=== PATIENT | male | born 1980 | race Caucasian/White ===

== ENCOUNTER 2020-09-18 08:23 | Observation (INO) | payer BC, OTHER ==
[2020-09-18 09:26] LABS: Absolute Lymphocytes (CBC) 1.7 K/uL (0.7-4.9); Basophils % 0.5 % (0-1.3); Hematocrit 45.3 % (39.6-49.0); Lymphocytes % 18.2 % (15.3-44.8); MPV 10.8 fL (7.6-11.3)
[2020-09-18 09:37] LABS: Protime INR 1.21
[2020-09-18 10:02] LABS: ALT/SGPT 96 U/L (12-78); Albumin 3.8 g/dL (3.4-5.0); Alkaline Phosphatase 76 U/L (45-117); BUN Blood Urea Nitrogen 14 mg/dL (7-18); Bicarbonate 23 mmol/L (21-32); Bilirubin Total 4.5 mg/dL (0.2-1.0); Glucose Level 134 mg/dL (74-106); Lipase 116 U/L (73-393); NT PRO-BNP 61 pg/mL (<125); Protein, Total 7.6 g/dL (6.4-8.2); Sodium Level 135 mmol/L (136-145); Troponin (Emerg Dept Use Only) < 0.02 ng/mL (0.0-0.045)
[2020-09-18 10:03] LABS: AST/SGOT 126 U/L (15-37); Magnesium 1.1 mg/dL (1.8-2.4)
[2020-09-18 10:06] LABS: Potassium 2.8 mmol/L (3.5-5.1)
--- NOTE | 2020-09-18 10:11 | RAD REPORT ---
EXAM DESCRIPTION: Torres Single View09/18/2020 10:00 am CLINICAL HISTORY: Cough COMPARISON: none FINDINGS: A few areas of scarring or subsegmental atelectasis are present within the left lung base . The lungs appear clear of acute infiltrate. The heart is normal size
[2020-09-18] MEDS ORDERED: THIAMINE 200 MG/2 ML INJ ONE (10:18)
[2020-09-18] MEDS ORDERED: LORazepam 2 MG/ML VIAL ONE ×2 (10:18→18:05)
[2020-09-18] MEDS ORDERED: NA CHLORIDE 0.9% 1,000 ML ONE (10:19)
[2020-09-18] MEDS ORDERED: MULTIVITAMINS 10 ML VIAL (INJ) IV ONE (10:19)
[2020-09-18] MEDS ORDERED: chlordiazePOXIDE HCl 25 MG CAP ONE (10:19)
--- NOTE | 2020-09-18 10:22 | RAD REPORT ---
EXAM DESCRIPTION: CT - Head Brain Wo Cont - 09/18/2020 9:59 am CLINICAL HISTORY: Dizziness COMPARISON: None TECHNIQUE: Computed axial tomography of the head was obtained. IV contrast was not requested. All CT scans are performed using dose optimization technique as appropriate and may include automated exposure control or mA/KV adjustment according to patient size. FINDINGS: An intracranial bleed is not seen . The ventricles are normal in caliber. No extra-axial fluid collection is noted. Fluid within the sinuses/ mastoids is not seen. Mucus retention cyst right maxillary sinus IMPRESSION: No acute intracranial abnormality is seen. If patient's symptoms persist MRI of the bra in would be recommended.
[2020-09-18] MEDS ORDERED: KCL 20 MEQ/100 mL IVPB 20 MEQ/100 ML BAG IV ONE (10:53)
[2020-09-18] MEDS ORDERED: Magnesium Sulfate 2gm IVPB 2 G/50 ML BAG IV ONE (10:53)
[2020-09-18] MEDS ORDERED: POTASSIUM CL SA 10 MEQ TAB PO ONE (10:53)
[2020-09-18 10:57] LABS: Blood Morphology Comment NOTED (NOT SEEN); Macrocytosis 2+; Platelet Estimate DECR; Stomatocytes 1+; White Blood Cell Scan OK (OK)
--- NOTE | 2020-09-18 11:07 | EDPHYS ---
Physician Documentation [facility] Name: Dami Spring Age: 39 yrs Sex: Male : 1980 Arrival Date: 09/18/2020 Time: 08:27 Bed 17 Private MD: ED Physician Jamin Ga HPI: 09/18 09:36 This 39 yrs old Male presents to ER via EMS with complaints of Probable phan Seizure. 09:36 The patient presents after having a single isolated seizure, that lasted 2 minute(s). phan Character of seizure(s): Loss of consciousness: the patient experienced loss of consciousness, Motor activity: generalized, Incontinence: none, Apnea: the patient did not experience apnea, Circulation: the patient did not experience evidence of pulse disturbance. Seizure onset: just prior to arrival. Context: the seizure(s) was witnessed, by family, father, mother, occurred at home. Seizure Hx: the patient has no previous seizure history. Associated injury: The patient did not suffer any apparent associated injury. EMS care: none. Current symptoms: confusion. The patient has not experienced similar symptoms in the past. Historical: - Allergies: 08:31 No Known Allergies; ph - Home Meds: 08:31 Unable to obtain [Active]; ph - Immunization history:: Adult Immunizations unknown. - Social history:: Smoking status: Patient reports the use of cigarette tobacco products, smokes one-half pack cigarettes per day, Patient/guardian denies using street drugs. - Family history:: not pertinent. ROS: 09:36 Constitutional: Negative for fever, chills, and weight loss, Eyes: Negative for injury, phan pain, redness, and discharge, ENT: Negative for injury, pain, and discharge, Neck: Negative for injury, pain, and swelling, Cardiovascular: Negative for chest pain, palpitations, and edema, Respiratory: Negative for shortness of breath, cough, wheezing, and pleuritic chest pain, Abdomen/GI: Negative for abdominal pain, nausea, vomiting, diarrhea, and constipation, Back: Negative for injury and pain, : Negative for injury, bleeding, discharge, and swelling, MS/Extremity: Negative for injury and deformity, Skin: Negative for injury, rash, and discoloration, Psych: Negative for depression, anxiety, suicide ideation, homicidal ideation, and hallucinations, Allergy/Immunology: Negative for hives, rash, and allergies, Endocrine: Negative for neck swelling, polydipsia, polyuria, polyphagia, and marked weight changes, Hematologic/Lymphatic: Negative for swollen nodes, abnormal bleeding, and unusual bruising. 09:36 Neuro: Positive for seizure activity. Exam: 09:36 Constitutional: This is a well developed, well nourished patient who is awake, alert, phan and in no acute distress. Head/Face: Normocephalic, atraumatic. ENT: Nares patent. No nasal discharge, no septal abnormalities noted. Tympanic membranes are normal and external auditory canals are clear. Oropharynx with no redness, swelling, or masses, exudates, or evidence of obstruction, uvula midline. Mucous membranes moist. Neck: Trachea midline, no thyromegaly or masses palpated, and no cervical lymphadenopathy. Supple, full range of motion without nuchal rigidity, or vertebral point tenderness. No Meningismus. Chest/axilla: Normal chest wall appearance and motion. Nontender with no deformity. No lesions are appreciated. Respiratory: Lungs have equal breath sounds bilaterally, clear to auscultation and percussion. No rales, rhonchi or wheezes noted. No increased work of breathing, no retractions or nasal flaring. Abdomen/GI: Soft, non-tender, with normal bowel sounds. No distension or tympany. No guarding or rebound. No evidence of tenderness throughout. Back: No spinal tenderness. No costovertebral tenderness. Full range of motion. Male : Normal genitalia with no discharge or lesions. Skin: Warm, dry with normal turgor. Normal color with no rashes, no lesions, and no evidence of cellulitis. MS/ Extremity: Pulses equal, no cyanosis. Neurovascular intact. Full, normal range of motion. Psych: Awake, alert, with orientation to person, place and time. Behavior, mood, and affect are within normal limits. 09:36 Eyes: Sclera: icterus, is present. 09:36 Neuro: Orientation: to person, place, time, situation, Mentation: is normal, Memory: appropriate for stated age, no acute changes, Cerebellar function: is grossly normal based on the patient's age, no acute changes, Motor: is normal, is grossly normal based on the patient's age, no acute changes, moves all fours, Sensation: is normal, no obvious gross deficits, no acute changes, Gait: not tested. Deep tendon reflexes are 2+ (normal) in the bilateral brachioradialis, bicep, tricep and patellar and Achilles tendons, seizure activity, is not displayed by the patient. Vital Signs: 08:28 BP 123 / 100; Pulse 119; Resp 18; Temp 98.7(O); Pulse Ox 100% on R/A; Weight 79.38 kg; ph Height 4 ft. 9 in. (144.78 cm); 09:30 BP 127 / 98; Pulse 101; Resp 18; Pulse Ox 98% on R/A; ph 10:55 BP 122 / 89; Pulse 89; Resp 18; Pulse Ox 100% on R/A; ph 12:03 BP 128 / 89; Pulse 88; Resp 18; Pulse Ox 99% on R/A; ph 13:30 BP 136 / 89; Pulse 87; Resp 18; Pulse Ox 99% on R/A; ph 08:28 Body Mass Index 37.87 (79.38 kg, 144.78 cm) ph Vin Coma Score: 08:34 Eye Response: spontaneous(4). Verbal Response: confused(4). Motor Response: obeys ph commands(6). Total: 14. MDM: 08:31 Patient medically screened. phan 09:39 Differential diagnosis: drug overdose, seizure. Data reviewed: vital signs, nurses [facility] notes, lab test result(s), EKG, radiologic studies, CT scan, plain films. Data interpreted: telemetry monitor: rate is 119 beats/min, rhythm is regular. Test interpretation: by ED physician or midlevel provider: ECG, plain radiologic studies. Counseling: I had a detailed discussion with the patient and/or guardian regarding: the historical points, exam findings, and any diagnostic results supporting the discharge/admit diagnosis, the presence of at least one elevated blood pressure reading (>120/80) during this emergency department visit, lab results, radiology results, the need for further work-up and treatment in the hospital. Medical screen evaluation completed. EMTALA emergency medical condition absent. Medical screen evaluation completed. [facility]. 09/18 08:36 Order name: Basic Metabolic Panel; Complete Time: 11:02 phan 09/18 08:36 Order name: CBC with Diff; Complete Time: 11:02 [facility] 09/18 08:36 Order name: LFT's; Complete Time: 11:02 [facility] 09/18 08:36 Order name: Magnesium; Complete Time: 11:02 [facility] 09/18 08:36 Order name: NT PRO-BNP; Complete Time: 11:02 [facility] 09/18 08:36 Order name: PT-INR; Complete Time: 09:40 [facility] 09/18 08:36 Order name: Troponin (emerg Dept Use Only); Complete Time: 11:02 [facility] 09/18 08:36 Order name: Lipase; Complete Time: 11:02 [facility] 09/18 08:36 Order name: Acetaminophen; Complete Time: 11:02 [facility] 09/18 08:36 Order name: ETOH Level; Complete Time: 11:02 [facility] 09/18 08:36 Order name: Ptt, Activated; Complete Time: 09:40 [facility] 09/18 08:36 Order name: Salicylate; Complete Time: 11:02 [facility] 09/18 08:36 Order name: Urine Drug Screen [facility] 09/18 08:36 Order name: AMMONIA; Complete Time: 09:40 [facility] 09/18 08:36 Order name: XRAY Chest (1 view); Complete Time: 11:02 [facility] 09/18 08:36 Order name: CT Head Brain wo Cont; Complete Time: 11:02 [facility] 09/18 09:32 Order name: CBC Smear Scan; Complete Time: 11:02 [facility] 09/18 10:17 Order name: Phosphorus; Complete Time: 11:02 [facility] 09/18 12:13 Order name: SARS-COV-2 RT PCR [facility] 09/18 13:17 Order name: Urine Dipstick-Ancillary [facility] 09/18 17:27 Order name: Hemoglobin A1c [facility] 09/18 08:36 Order name: EKG; Complete Time: 09:17 [facility] 09/18 08:36 Order name: Cardiac monitoring; Complete Time: 09:38 [facility] 09/18 08:36 Order name: EKG - Nurse/Tech; Complete Time: 09:37 [facility] 09/18 08:36 Order name: IV Saline Lock; Complete Time: 09:38 [facility] 09/18 08:36 Order name: Labs collected and sent; Complete Time: 10:53 [facility] 09/18 08:36 Order name: O2 Per Protocol; Complete Time: 10:53 [facility] 09/18 08:36 Order name: O2 Sat Monitoring; Complete Time: 10:53 [facility] 09/18 08:36 Order name: Suicide Screening ([place]); Complete Time: 09:37 [facility] 09/18 08:36 Order name: Seizure Precautions; Complete Time: 08:45 [facility] Administered Medications: 10:50 Drug: Thiamine 100 mg Route: IV; Rate: bolus; Site: right antecubital; ph 12:04 Follow up: Response: No adverse reaction; IV Status: Completed infusion ph 10:50 Drug: NS 0.9% 1000 ml Route: IV; Rate: 125 ml/hr; Site: right antecubital; ph 12:04 Follow up: IV Status: Infusion continued upon admission ph 10:50 Drug: Banana Bag - (NS 0.9% 1000 ml, foLIC Acid 1 mg, Thiamine 100 mg, Multivitamin 1 ph amp) Route: IV; Rate: 150 ml/hr; Site: right antecubital; 12:04 Follow up: Response: No adverse reaction; IV Status: Infusion continued upon admission ph 10:51 Drug: Potassium Effervescent Tablet 50 mEq Route: PO; ph 12:05 Follow up: Response: No adverse reaction ph 10:51 Drug: Potassium Chloride 20 mEq Route: IV; Rate: per protocol; Site: right antecubital; ph 13:00 Follow up: IV Status: Completed infusion ph 10:51 Drug: Magnesium Sulfate 2 grams Route: IVPB; Infused Over: 2 hrs; Site: right ph antecubital; 13:00 Follow up: Response: No adverse reaction; IV Status: Completed infusion ph 10:52 Drug: Ativan (LORazepam) 1 mg Route: IVP; Site: right antecubital; ph 12:05 Follow up: Response: No adverse reaction ph 10:52 Drug: chlordiazePOXIDE 50 mg Route: PO; ph 12:05 Follow up: Response: No adverse reaction ph Disposition: 09/18/20 11:07 Hospitalization ordered by Kody Flores for Inpatient Admission. Preliminary diagnosis are Epileptic seizures related to external causes, Alcohol abuse, Alcoholic liver disease, Hypomagnesemia, Hypokalemia. - Bed requested for Telemetry/MedSurg (Inpatient). - Status is Inpatient Admission. ph - Condition is Fair. - Problem is new. - Symptoms have improved. Signatures: Dispatcher [employer] EDJamin Pham MD MD cha Martinez, Eric em1 Rae Powell RN RN ph Corrections: (The following items were deleted from the chart) 11:21 09:17 CORONAVIRUS+MR.LAB.BRZ ordered. EDMS EDMS 14:40 11:07 Hospitalization Ordered by Kody Flores MD for Inpatient Admission. Preliminary em1 diagnosis is Epileptic seizures related to external causes; Alcohol abuse; Alcoholic liver disease; Hypomagnesemia; Hypokalemia. Bed requested for Telemetry/MedSurg (Inpatient). Status is Inpatient Admission. Condition is Fair. Problem is new. Symptoms have improved. phan 16:57 14:40 09/18/2020 11:07 Hospitalization Ordered by Kody Flores MD for Inpatient em1 Admission. Preliminary diagnosis is Epileptic seizures related to external causes; Alcohol abuse; Alcoholic liver disease; Hypomagnesemia; Hypokalemia. Bed requested for [facility] ER HOLD. Status is Inpatient Admission. Condition is Fair. Problem is new. Symptoms have improved. em1 18:54 16:57 09/18/2020 11:07 Hospitalization Ordered by Kody Flores MD for Inpatient ph Admission. Preliminary diagnosis is Epileptic seizures related to external causes; Alcohol abuse; Alcoholic liver disease; Hypomagnesemia; Hypokalemia. Bed requested for Telemetry/MedSurg (Inpatient). Status is Inpatient Admission. Condition is Fair. Problem is new. Symptoms have improved. em1
--- NOTE | 2020-09-18 11:07 | ER ---
Nurse's Notes [facility] Name: Dami Spring Age: 39 yrs Sex: Male : 1980 Arrival Date: 09/18/2020 Time: 08:27 Bed 17 Private MD: Diagnosis: Epileptic seizures related to external causes;Alcohol abuse;Alcoholic liver disease;Hypomagnesemia;Hypokalemia Presentation: 09/18 08:28 Chief complaint: EMS states: New onset seizure witnessed by family who stated it lasted ph approx 15 min, family states that pt has hx of ETOH use and possible "liver problems", pt denies recent ETOH or drug use, alert upon arrival, oriented to person only. Coronavirus screen: Client denies travel out of the [place] in the last 14 days. Ebola Screen: No symptoms or risks identified at this time. Initial Sepsis Screen: Does the patient meet any 2 criteria? No. Patient's initial sepsis screen is negative. Does the patient have a suspected source of infection? No. Patient's initial sepsis screen is negative. Risk Assessment: Do you want to hurt yourself or someone else? Patient reports no desire to harm self or others. Onset of symptoms was September 18, 2020. 08:28 Method Of Arrival: EMS: [facility] ph 08:28 Acuity: CANDICE 2 ph 08:31 Care prior to arrival: IV initiated. 20 GA, in the right antecubital area, Glucose ph check: 128. Historical: - Allergies: 08:31 No Known Allergies; ph - Home Meds: 08:31 Unable to obtain [Active]; ph - Immunization history:: Adult Immunizations unknown. - Social history:: Smoking status: Patient reports the use of cigarette tobacco products, smokes one-half pack cigarettes per day, Patient/guardian denies using street drugs. - Family history:: not pertinent. Screenin:32 Abuse screen: Denies threats or abuse. Denies injuries from another. Nutritional ph screening: No deficits noted. Tuberculosis screening: No symptoms or risk factors identified. Fall Risk Fall in past 12 months (25 points). No secondary diagnosis (0 pts). IV access (20 points). Ambulatory Aid- None/Bed Rest/Nurse Assist (0 pts). Gait- Normal/Bed Rest/Wheelchair (0 pts) Mental Status- Oriented to own ability (0 pts). Total Staples Fall Scale indicates Low Risk Score (25-44 pts). Fall prevention measures have been instituted. Side Rails Up X 2 Placed close to Nursing Station Frequent Obs/Assesments occuring Family Present and informed to notify staff if they need to leave bedside As available Patient and Family Educated on Fall Prevention Program and strategies. Assessment: 08:33 General: Appears in no apparent distress. comfortable, well groomed, Behavior is calm, ph cooperative, appropriate for age, Denies fever, feeling ill. Pain: Denies pain. Neuro: Level of Consciousness is awake, alert, obeys commands, Oriented to person, Speech is normal, Facial symmetry appears normal, Seizure activity reported prior to arrival. Cardiovascular: Capillary refill < 3 seconds in bilateral fingers Patient's skin is warm and dry. Rhythm is sinus tachycardia. Respiratory: Airway is patent Respiratory effort is even, unlabored, Respiratory pattern is regular, symmetrical. Derm: Skin is intact, Skin is pink, warm \\T\\ dry. Musculoskeletal: Circulation, motion, and sensation intact. Range of motion: intact in all extremities. 09:30 Reassessment: Patient appears in no apparent distress at this time. Patient and/or ph family updated on plan of care and expected duration. Pain level reassessed. Patient is alert, oriented x 3, equal unlabored respirations, skin warm/dry/pink. Pt now A\\T\\O x 4, does not recall having seizure, pt admits to being a daily drinker, 1 pint of liquor per day. 10:54 Reassessment: Patient appears in no apparent distress at this time. Patient and/or ph family updated on plan of care and expected duration. Pain level reassessed. Patient is alert, oriented x 3, equal unlabored respirations, skin warm/dry/pink. Family at bedside. 12:03 Reassessment: Patient appears in no apparent distress at this time. Patient and/or ph family updated on plan of care and expected duration. Pain level reassessed. Patient is alert, oriented x 3, equal unlabored respirations, skin warm/dry/pink. 13:00 Reassessment: Patient appears in no apparent distress at this time. Patient and/or ph family updated on plan of care and expected duration. Pain level reassessed. Patient is alert, oriented x 3, equal unlabored respirations, skin warm/dry/pink. Vital Signs: 08:28 BP 123 / 100; Pulse 119; Resp 18; Temp 98.7(O); Pulse Ox 100% on R/A; Weight 79.38 kg; ph Height 4 ft. 9 in. (144.78 cm); 09:30 BP 127 / 98; Pulse 101; Resp 18; Pulse Ox 98% on R/A; ph 10:55 BP 122 / 89; Pulse 89; Resp 18; Pulse Ox 100% on R/A; ph 12:03 BP 128 / 89; Pulse 88; Resp 18; Pulse Ox 99% on R/A; ph 13:30 BP 136 / 89; Pulse 87; Resp 18; Pulse Ox 99% on R/A; ph 08:28 Body Mass Index 37.87 (79.38 kg, 144.78 cm) ph Vin Coma Score: 08:34 Eye Response: spontaneous(4). Verbal Response: confused(4). Motor Response: obeys ph commands(6). Total: 14. ED Course: 08:27 Patient arrived in ED. ph 08:30 Triage completed. ph 08:31 Jamin Ga MD is Attending Physician. phan 08:31 Arm band placed on right wrist. ph 08:32 Placed in gown. Bed in low position. Call light in reach. Side rails up X2. Seizure ph precautions initiated. nuclear monitoring technician on. Pulse ox on. NIBP on. Door closed. Noise minimized. 08:33 Rae Powell, RN is Primary Nurse. ph 09:00 No provider procedures requiring assistance completed. Maintain EMS IV. Dressing ph intact. Good blood return noted. Site clean \\T\\ dry. Gauge \\T\\ site: 18 RAC. IV is intact, with fluids infusing freely, with good blood return. 09:59 CT Head Brain wo Cont In Process Unspecified. EDMS 10:00 XRAY Chest (1 view) In Process Unspecified. EDMS 11:04 Kody Flores MD is Hospitalizing Provider. phan 18:05 Patient admitted, IV remains in place. ph Administered Medications: 10:50 Drug: Thiamine 100 mg Route: IV; Rate: bolus; Site: right antecubital; ph 12:04 Follow up: Response: No adverse reaction; IV Status: Completed infusion ph 10:50 Drug: NS 0.9% 1000 ml Route: IV; Rate: 125 ml/hr; Site: right antecubital; ph 12:04 Follow up: IV Status: Infusion continued upon admission ph 10:50 Drug: Banana Bag - (NS 0.9% 1000 ml, foLIC Acid 1 mg, Thiamine 100 mg, Multivitamin 1 ph amp) Route: IV; Rate: 150 ml/hr; Site: right antecubital; 12:04 Follow up: Response: No adverse reaction; IV Status: Infusion continued upon admission ph 10:51 Drug: Potassium Effervescent Tablet 50 mEq Route: PO; ph 12:05 Follow up: Response: No adverse reaction ph 10:51 Drug: Potassium Chloride 20 mEq Route: IV; Rate: per protocol; Site: right antecubital; ph 13:00 Follow up: IV Status: Completed infusion ph 10:51 Drug: Magnesium Sulfate 2 grams Route: IVPB; Infused Over: 2 hrs; Site: right ph antecubital; 13:00 Follow up: Response: No adverse reaction; IV Status: Completed infusion ph 10:52 Drug: Ativan (LORazepam) 1 mg Route: IVP; Site: right antecubital; ph 12:05 Follow up: Response: No adverse reaction ph 10:52 Drug: chlordiazePOXIDE 50 mg Route: PO; ph 12:05 Follow up: Response: No adverse reaction ph Outcome: 11:07 Decision to Hospitalize by Provider. phan 14:45 Admitted to ER Hold. Please see [facility] for further documentation. ph 14:45 Condition: good 14:45 Instructed on the need for admit. 18:54 Patient left the ED. ph Signatures: Dispatcher [employer] Jamin Saab MD MD cha Hall, Patricia, RN RN ph
[2020-09-18 13:17] LABS: Urine Blood Negative (Negative); Urine Glucose Negative (Negative); Urine Protein 2+ (Negative); Urine pH 6.5 (5.0-7.0)
[2020-09-18 13:37] LABS: Barbiturates NEGATIVE (NEGATIVE); Benzodiazepines NEGATIVE (NEGATIVE); Cocaine NEGATIVE (NEGATIVE); METHAMPHETAM NEGATIVE (NEGATIVE); Methadone NEGATIVE (NEGATIVE); Opiates NEGATIVE (NEGATIVE); Phencyclidine NEGATIVE (NEGATIVE); THC Cannibis POSITIVE (NEGATIVE)
[2020-09-18] MEDS ORDERED: LABETALOL 20 MG/4ML SYRINGE IV PRN (13:56)
[2020-09-18] MEDS ORDERED: ACETAMINOPHEN 500 MG TAB PO PRN (13:57)
[2020-09-18] MEDS ORDERED: ONDANSETRON 4 MG/2 ML VIAL IV PRN (13:57)
[2020-09-18] MEDS ORDERED: TRAMADOL HCL 50 MG TAB PO PRN (13:59)
[2020-09-18] MEDS: CEFTRIAXONE/SWI 1gm 1 GM/10 ML SYR IV SCH (14:00)
--- NOTE | 2020-09-18 14:06 | P.HP ---
Certification for Inpatient Patient admitted to: Observation With expected LOS: <2 Midnights Patient will require the following post-hospital care: None Practitioner: I am a practitioner with admitting privileges, knowledge of patient current condition, hospital course, and medical plan of care. Services: Services provided to patient in accordance with Admission requirements found in Title 42 Section 412.3 of the Code of Federal Regulations <Rosario Whipple - Last Filed: 09/18/20 18:18> Patient History Date of Service: 09/18/20 Reason for admission: Alcohol withdrawal, seizures History of Present Illness: Patient is a 39-year-old male with a past medical history significant for alcohol abuse and nicotine dependence who presents with complaint of seizures onset today. Family reported that patient was in the living room when he started having generalized stiffness and patient eventually had a tonic-clonic seizure that lasted for about 1 min . Prior to having seizure , patient developed nausea and vomiting 4 days ago. Patient resides in [place] and visiting his father 4 days ago. Patient also reports associated signs and symptoms of diaphoresis, dizziness, tremors and hallucinations--auditory and visual. Patient had postictal symptom of confusion which resolved by the time patient came to the hospital. Patient currently denies any other signs and symptoms. Symptoms are aggravated or relieved by nothing. Patient was brought to the hospital for medical evaluation. Home medications list reviewed: No - Past Medical/Surgical History Has patient received pneumonia vaccine in the past: No Diabetic: No -: Alcohol abuse. -: Nicotine dependence. - Social History Smoking Status: Current every day smoker Smoking therapy provided: Yes Patient receptive to therapy: Yes Alcohol use: Yes CD- Drugs: Yes Caffeine use: No Place of Residence: Home <CristallenkaRosario edward Wagner - Last Filed: 09/18/20 18:18> Date of Service: 09/18/20 <Kody Flores - Last Filed: 09/19/20 13:48> Allergies No Known Allergies Allergy (Verified 09/18/20 22:12) Review of Systems General: Sweats, Other (Tremros, hallucination.) Eyes: Unremarkable ENT: Unremarkable Respiratory: Unremarkable Cardiovascular: Unremarkable Gastrointestinal: Nausea, Vomiting Genitourinary: Unremarkable Musculoskeletal: Unremarkable Integumentary: Unremarkable Neurological: Other (Dizziness) <SoleBrandoncan Edward - Last Filed: 09/18/20 18:18> Physical Examination - Physical Exam General: Alert, In no apparent distress, Oriented x3 HEENT: Atraumatic, PERRLA, Mucous membr. moist/pink, EOMI, Sclerae nonicteric Neck: Supple, 2+ carotid pulse no bruit, No LAD, Without JVD or thyroid abnormality Respiratory: Clear to auscultation bilaterally, Normal air movement Cardiovascular: No edema, Regular rate/rhythm, Normal S1 S2 Capillary refill: <2 Seconds Gastrointestinal: Normal bowel sounds, No tenderness Musculoskeletal: No clubbing, No tenderness Integumentary: No rashes Neurological: Normal gait, Normal speech, Normal strength at 5/5 x4 extr, Normal tone, Normal affect Lymphatics: No axilla or inguinal lymphadenopathy External genitalia: Deferred Rectal: Deferred - Studies Laboratory Data (last 24 hrs) 09/18/20 08:45: PT 14.0 H, INR 1.21, APTT 24.8 09/18/20 08:45: WBC 9.30, Hgb 15.8, Hct 45.3, Plt Count 98 L 09/18/20 08:45: Sodium 135 L, Potassium 2.8 L*, BUN 14, Creatinine 1.15, Glucose 134 H, Magnesium 1.1 L*, Total Bilirubin 4.5 H, AST 126 H, ALT 96 H, Alkaline Phosphatase 76, Lipase 116 <Rosario Whipple - Last Filed: 09/18/20 18:18> Assessment and Plan - Plan --Seizures. Likely alcohol induced. CT head unremarkable for any acute intracranial abnormality. Neurology consulted. Recommends an EEG. Will await further recommendations from neurology. --Alcohol abuse. Patient currently having withdrawal symptoms. Patient placed on banana bag, Librium and Ativan p.r.n.. CIWA protocol. Social work consulted to help with resources for alcohol withdrawal. --Acute encephalopathy. Resolved. Continue supportive care. --Hypokalemia. Replete p.r.n.. -UTI POA. Patient placed on antibiotics. --Hypomagnesaemia. Replete p.r.n.. --Nicotine dependence. Patient placed on nicotine patch and counseled on tobacco cessation. --Cannabis use disorder. Patient counseled on cessation. --DVT prophylaxis with Lovenox subQ Plan to discharge in: 48 Hours - Advance Directives Does patient have a Living Will: No Does patient have a Durable POA for Healthcare: No - Code Status/Comfort Care Code Status Assessed: Yes Code Status: Full Code Critical Care: No <Rosario Whipple - Last Filed: 09/18/20 18:18> Date of Service: 09/18/20 Patient is doing well. No new compliants. Anticipate DC in the AM <Kody Flores - Last Filed: 09/19/20 13:48>
[2020-09-18 15:29] VITALS: BMI 24.4
[2020-09-18] MEDS ORDERED: CEFTRIAXONE/SWI 1gm 1 GM/10 ML SYR ONE (16:12)
[2020-09-18] MEDS: LORazepam 2 MG/ML VIAL IV PRN (17:45)
[2020-09-18] MEDS: NICOTINE 21 MG/PAT TD SCH (22:08)
[2020-09-19] MEDS: chlordiazePOXIDE HCl 25 MG CAP PO SCH ×2 (00:41→06:09)
[2020-09-19] MEDS: LORazepam 2 MG/ML VIAL IV PRN ×2 (02:44→08:20)
[2020-09-19 04:42] LABS: Basophils % 0.9 % (0-1.3); Hematocrit 41.4 % (39.6-49.0); Lymphocytes % 23.8 % (15.3-44.8); MPV 10.7 fL (7.6-11.3); RBC Red Blood Cell Count 3.63 M/uL (4.33-5.43)
[2020-09-19 04:59] LABS: BUN Blood Urea Nitrogen 11 mg/dL (7-18); Bicarbonate 30 mmol/L (21-32); Glucose Level 86 mg/dL (74-106); HDL Cholesterol 61 mg/dL (40-60); LDL Cholesterol, Calculated 98 (<130); Potassium 3.6 mmol/L (3.5-5.1); Sodium Level 140 mmol/L (136-145)
[2020-09-19 05:42] LABS: Magnesium 1.5 mg/dL (1.8-2.4)
[2020-09-19] MEDS ORDERED: POTASSIUM 25 MEQ EFFERV TAB PO ONE (05:46)
[2020-09-19] MEDS ORDERED: Magnesium Sulfate 2gm IVPB 2 G/50 ML BAG IV ONE ×2 (05:47→14:16)
[2020-09-19] MEDS: NICOTINE 21 MG/PAT TD SCH (08:20)
[2020-09-19] MEDS: CEFTRIAXONE/SWI 1gm 1 GM/10 ML SYR IV SCH (08:20)
[2020-09-19] MEDS ORDERED: FOLIC ACID 1 MG, MULTIVITAMINS INJ 10 ML, THIAMINE HCL 100 MG in NA CHLORIDE 0.9% 1,000 ML IV SCH (09:00)
[2020-09-19] MEDS ORDERED: ENOXAPARIN 40 MG/0.4 ML SQ SCH (09:00)
[2020-09-19 10:08] VITALS: O2SAT 98
--- NOTE | 2020-09-19 12:00 | EKG ---
Test Date: 2020-09-18 Test Time: 09:27:37 Scrubber Operator: DERICK MEASUREMENT RESULTS: Intervals: Rate: 92 GA: 124 QRSD: 74 QT: 376 QTc: 464 [place]: P: 64 GA: 124 QRS: 5 T: 58 INTERPRETIVE STATEMENTS: Normal sinus rhythm Septal infarct, age undetermined Abnormal ECG No previous ECG available for comparison Electronically Signed On 09-19-20 11:54:14 CDT by Govind Michelle
[2020-09-19 13:25] VITALS: BP 166/104; TEMP 97.1
--- NOTE | 2020-09-20 09:00 | EEG ---
CHART: [id number] TEST ID#: [id number] DATE OF STUDY: 09/19/2020 THE EEG WAS RECORDED PORTABLE IN THE PATIENT'S ROOM ON A 17 CHANNEL MACHINE. ELECTRODES WERE APPLIED IN THE USUAL MANNER USING THE INTERNATIONAL 10-20 SYSTEM. THE WAKING BACKGROUND RHYTHM IN THIS RECORD CONSISTS OF VERY WELL DEVELOPED AND WELL ORGANIZED WAVES OF 10 HZ., MAXIMAL IN THE POSTERIOR HEAD REGIONS WHICH ATTENUATE NORMALLY WITH EYE OPENING. EXCESS LOW-VOLTAGE 18-22 HZ ACTIVITY IS EXPRESSED IN ALL REGIONS. THERE ARE NO FOCAL OR LATERALIZING FEATURES. NO EPILEPTIFORM ACTIVITY APPEARS. SLEEP OCCURRED NATURALLY. HYPERVENTILATION WAS NOT PERFORMED. PHOTIC STIMULATION PRODUCED GOOD DRIVING BILATERALLY. IMPRESSION: NORMAL EEG FOR THE AGE OF THE PATIENT IN [place]. THE PRESENCE IF EXCESS FAST (BETA) ACTIVITY IS CONSISTENT WITH A MEDICATION EFFECT IN THIS NORMAL AWAKE EEG.
--- NOTE | 2020-09-24 04:38 | P.DS ---
Discharge Date: 09/19/20 Disposition: ROUTINE DISCHARGE Discharge Condition: GOOD Reason for Admission: Alcohol withdrawal, seizures Brief History of Present Illness: Patient is a 39-year-old male with a past medical history significant for alcohol abuse and nicotine dependence who presents with complaint of seizures onset today. Family reported that patient was in the living room when he started having generalized stiffness and patient eventually had a tonic-clonic seizure that lasted for about 1 min . Prior to having seizure , patient developed nausea and vomiting 4 days ago. Patient resides in [place] and visiting his father 4 days ago. Patient also reports associated signs and symptoms of diaphoresis, dizziness, tremors and hallucinations--auditory and visual. Patient had postictal symptom of confusion which resolved by the time p atient came to the hospital. Patient currently denies any other signs and symptoms. Symptoms are aggravated or relieved by nothing. Patient was brought to the hospital for medical evaluation. Hospital Course: Patient is clinically doing well. Patient's symptoms are stable. Patient does have some tremors but he wants to go home. Patient's states she would help take care of him. Counseled him if he is not able to get his medications that he needs to taper with just a small drink of alcohol. This can be done 3 times a day for about 5 days and then after that 2 times a day for 5 days and then 1 shot a day. He can do that for about 5 days and then try to stop. He does not need to stop completely at this time. If he does not want to drink alcohol then he is advised to take the Librium as I prescribed it. Patient stable for discharge at this time. Seizure precautions and patient is counseled to refrain from driving or doing any high risk activity as he has just had a seizure and needs to be cleared by Neurology prior to proceeding with any of this Vital Signs/Physical Exam: Temp Pulse Resp BP Pulse Ox 97.1 F 98 H 18 166/104 H 99 09/19/20 12:00 09/19/20 12:00 09/19/20 12:00 09/19/20 12:00 09/19/20 12:00 General: Alert, In no apparent distress, Oriented x3 Laboratory Data at Discharge: WBC 8.60 K/uL (4.3-10.9) 09/19/20 04:12 Hgb 14.2 g/dL (13.6-17.9) 09/19/20 04:12 Hct 41.4 % (39.6-49.0) 09/19/20 04:12 Plt Count 90 K/uL (152-406) L 09/19/20 04:12 PT 14.0 SECONDS (9.5-12.5) H 09/18/20 08:45 INR 1.21 09/18/20 08:45 APTT 24.8 SECONDS (24.3-36.9) 09/18/20 08:45 Sodium 140 mmol/L (136-145) 09/19/20 04:12 Potassium 3.6 mmol/L (3.5-5.1) 09/19/20 04:12 BUN 11 mg/dL (7-18) 09/19/20 04:12 Creatinine 0.85 mg/dL (0.55-1.3) 09/19/20 04:12 Glucose 86 mg/dL (74-106) 09/19/20 04:12 Phosphorus 3.4 mg/dL (2.5-4.9) 09/18/20 Unknown Magnesium 1.5 mg/dL (1.8-2.4) L 09/19/20 04:12 Magnesium Cancelled 09/19/20 04:12 Total Bilirubin 4.5 mg/dL (0.2-1.0) H 09/18/20 08:45 AST 126 U/L (15-37) H 09/18/20 08:45 ALT 96 U/L (12-78) H 09/18/20 08:45 Alkaline Phosphatase 76 U/L (45-117) 09/18/20 08:45 Triglycerides 82 mg/dL (<150) 09/19/20 04:12 Cholesterol 175 mg/dL (<200) 09/19/20 04:12 HDL Cholesterol 61 mg/dL (40-60) H 09/19/20 04:12 Cholesterol/HDL Ratio 2.87 09/19/20 04:12 Lipase 116 U/L (73-393) 09/18/20 08:45 Home Medications: Cyanocobalamin/Cobamamide [Vitamin B-12 5,000 Mcg Tab Sl] 1 each SL DAILY #30 tab.subl 09/19/20 Folic Acid 1 mg PO DAILY #30 tablet 09/19/20 Levetiracetam [Keppra] 500 mg PO BID #60 tablet 09/19/20 Metoprolol Tartrate [Lopressor] 50 mg PO BID #60 tab 09/19/20 chlordiazePOXIDE HCl [Chlordiazepoxide HCl] 10 mg PO Q6H #60 capsule 09/19/20 chlordiazePOXIDE HCl [Chlordiazepoxide HCl] 10 mg PO TID #70 capsule 09/20/20 New Medications: chlordiazePOXIDE HCl [Chlordiazepoxide HCl] 10 mg PO Q6H #60 capsule chlordiazePOXIDE HCl [Chlordiazepoxide HCl] 10 mg PO TID #70 capsule Folic Acid 1 mg PO DAILY #30 tablet Levetiracetam [Keppra] 500 mg PO BID #60 tablet Metoprolol Tartrate [Lopressor] 50 mg PO BID #60 tab Cyanocobalamin/Cobamamide [Vitamin B-12 5,000 Mcg Tab Sl] 1 each SL DAILY #30 tab.subl Diet: AHA Activity: Fall precautions Followup: [facility] [Primary Care Provider] - Time spent managing pt's care (in minutes): 35
== END 2020-09-19 14:48 | disposition home or self-care (01) ==
LOC: ER 08:23 → ERHOLD 13:12 → 2ND 18:17
PROVIDERS: ADMIT Hospitalist; ATTEND Hospitalist
DX: F10.239 Alcohol dependence with withdrawal, unspecified (principal); R56.9 Unspecified convulsions; E87.6 Hypokalemia; E83.42 Hypomagnesemia; N39.0 Urinary tract infection, site not specified; F12.90 Cannabis use, unspecified, uncomplicated; Z20.822 Contact with and (suspected) exposure to COVID-19; F17.210 Nicotine dependence, cigarettes, uncomplicated; R94.31 Abnormal electrocardiogram [ECG] [EKG]
CPT/HCPCS: 96365; 96367; 96368; 95816; 93005; 85025 ×2; 80048 ×2; 36415; 80320; 82140; 83735 ×2; 80329 ×2; 84100; 85610; 80061; 80076; 80307 ×8; 85730; 81003; 83036; 84484; 83690; 83880; 70450; 71045; 96375; 99285; U0003; J3411; J3480; J1650; J3475 ×2; J0696 ×2; J7030